=== PATIENT | female | born 1980 | race African-American/Black ===

== ENCOUNTER 2019-09-29 08:29 | Emergency (ER) | payer MEDICAID, OTHER ==
[~2019-09-29] VITALS: Ht 175.3 cm; Wt 68.0 kg
[2019-09-29] MEDS ORDERED: IMITREX50 MG ORAL ×2 (08:42→10:46)
[2019-09-29] MEDS ORDERED: NS 250 ML IV ONE (08:51)
[2019-09-29 08:53] VITALS: BP 144/98
[2019-09-29] MEDS ORDERED: Ketorolac 30mg Inj IV ONE (09:00)
[2019-09-29] MEDS ORDERED: DiphenhydrAMINE 50mg/ml Inj IVP ONE (09:00)
--- NOTE | 2019-09-29 09:01 | Emergency Room Report ---
History of Present Illness General Chief Complaint: Headache Source: Patient Present Illness HPI 38-year-old female history of migraine headaches presents with headache. She describes a frontal headache present for 2 days 10 out of 10 nonradiating. Some nausea but no vomiting. No fevers. No trauma. She has a history of migraines, tried Imitrex but is currently out of her medication. She denies any other medical history at this time. She has not taken any medications over the past 2 days. 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 OFFICER: No Patient History Last Menstrual Period: 09/25/19 Reviewed Nursing Documentation: PMH: Agreed; PSxH: Agreed Nursing Documentation-PMH Past Medical History: No History, Except For Review of Systems All Other Systems: negative except mentioned in HPI Physical Exam Vital Signs Date Time Temp Pulse Resp B/P (MAP) Pulse Ox O2 Delivery O2 Flow Rate FiO2 09/29/19 08:38 98.1 65 14 144/98 (113) 99 Room Air Sp02 EP Interpretation: reviewed, normal General Appearance: well appearing, no apparent distress Head: normocephalic, atraumatic Eyes: bilateral eye PERRL, bilateral eye EOMI ENT: hearing grossly normal, moist mucus membranes Neck: full range of motion, supple Respiratory: lungs clear, normal breath sounds, no rhonchi, no respiratory distress, no retraction, no wheezing Cardiovascular #1: normal peripheral pulses, regular rate, rhythm, no murmur Gastrointestinal: non tender, soft, non-distended, no guarding Neurologic: alert, motor strength/tone normal, 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 CT scan brain showed no acute abnormalities. Patient felt improved after migraine cocktail. Will provide refill of her Imitrex. Recommended follow-up with PMD. Also recommended discussion for referral to neurology. Agreeable with the plan. Stable for discharge. On reevaluation: Patient improved Plan-discharge home with refill of Imitrex and follow-up PMD. CT/MRI/US Diagnostic Results CT/MRI/US Diagnostic Results : Imaging Test Ordered: CT Brain Impression FINDINGS: There is normal symmetry and normal kay-white differentiation. There is no acute large territory cortical infarct, hemorrhage, mass effect or shift. Ventricles and cisterns as well as brainstem and posterior fossa appear unremarkable. The sellar region is normal. Sinuses, mastoid air cells and bony calvarium appear intact. IMPRESSION: NO ACUTE INTRACRANIAL ABNORMALITY. Last Vital Signs Date Time Temp Pulse Resp B/P (MAP) Pulse Ox O2 Delivery O2 Flow Rate FiO2 09/29/19 08:53 98.1 84 14 144/98 99 Room Air Status: improved Disposition: HOME, SELF-CARE Condition: Improved Scripts Sumatriptan Succinate* (IMITREX*) 50 Mg Tablet 50 MG ORAL DAILY PRN MIGRAINE PRN for Migraine Q2 up to 2 doses, #20 TAB Prov: Darrick Lauren M.D. 09/29/19 Darrick Lauren M.D. Sep 29, 2019 09:01
--- NOTE | 2019-09-29 09:19 | Diagnostic Imaging Report ---
EXAM: CT CT Head no Contrast INDICATION: Severe migraine headaches x2 days. TECHNIQUE: Axial images of the brain were obtained with subsequent sagittal and coronal reformats. All CT scans at this facility are performed using dose modulation techniques as appropriate to a performed exam including the following: automated exposure control with adjustment of the mA and/or kV according to patient size. COMPARISON STUDY: None. RADIATION DOSE: CTDIvol: 53.4 mGy DLP: 1045.5 mGy-cm Dose information generated by the CT scanner is available in PACS. FINDINGS: There is normal symmetry and normal kay-white differentiation. There is no acute large territory cortical infarct, hemorrhage, mass effect or shift. Ventricles and cisterns as well as brainstem and posterior fossa appear unremarkable. The sellar region is normal. Sinuses, mastoid air cells and bony calvarium appear intact. IMPRESSION: NO ACUTE INTRACRANIAL ABNORMALITY.
[2019-09-29 10:59] VITALS: BP 124/86
== END 2019-09-29 11:01 | disposition home or self-care (01) ==
LOC: EMR 08:45
DX: R51 Headache (principal); Z88.0 Allergy status to penicillin; R11.0 Nausea
CPT/HCPCS: 70450; 81025; 96374; 96375; J0780; J1200; J1885; J7050; Z7502; 99284

== ENCOUNTER 2020-01-17 00:01 | Emergency (ER) | payer MEDICAID ==
[~2020-01-17] VITALS: Ht 175.3 cm; Wt 74.4 kg
[~2020-01-17 00:01] MED LIST: IMITREX50 MG ORAL
--- NOTE | 2020-01-17 00:06 | Emergency Room Report ---
History of Present Illness General Chief Complaint: To Be Triaged Source: Patient Present Illness HPI 39-year-old female here with reviewed abdominal pain x2 days. Associated with dysuria and feels similar to "previous bladder infection". Patient is . Last sexual intercourse was unprotected with her . She has history of chlamydia when she was 21 years old which is completely treated. All sexual partners are treated. Last Pap smear was normal. Patient denies any concern for sexually transmitted infection at this time. Denies vaginal discharge. The patient's symptoms were gradual onset, severity was moderate, duration since 2 days. Quality: Burning Past medical history: None Past surgical history: x3 Smoking: Denies Alcohol use: Denies Drug use: Denies Review of systems: CONST: No fevers or chills, No night sweats PULMONARY: No productive cough, No shortness of breath CARDIAC: No chest pain, No palpitations GI: No vomiting, No diarrhea , No melena_or_BRBPR : No dysuria, No hematuria, No discharge NEURO: No new_focal_weakness_or_numbness, No confusion, No vision changes 14 point Review of Systems is otherwise negative except per HPI Physical Exam: GENERAL: Awake_alert_ nontoxic, no acute distress Spo2 98% on RA -normal EYES: Extraocular muscles are intact. Conjunctivae clear. Lids without swelling ENT: External nose and ear normal_in_appearance. Oropharynx clear. Head_at raumatic, Moist_oral_mucosa NECK: No JVD. No meningismus. No thyromegaly. Supple. Trachea midline RESP: Normal respiratory effort. Symmetric rise. No stridor. Clear_to_auscultation_No_rales_No_wheezes CARDIAC: Regular rate and regular rhytm. No_significant pedal edema. ABDOMEN: Soft.Mild suprapubic TTP without rebound. Nontender_No_rebound_or_guarding. Neg woods sign MSK: Normal muscle tone, without rigidity. Extremities without asymmetric deformity or swelling. SKIN: Warm and dry. No visible cyanosis or pallor NEUROLOGIC: Alert, oriented x3. Motor_and_sensation_grossly_intact. No truncal ataxia. Gait_normal Psych: Normal mood and affect, normal judgment and insight - COORDINATION OF CARE Case was discussed with: Patient Any labs and imaging that were ordered were interpreted as part of the medical decision making: Medical Decision Making/Plan: Differential diagnosis includes cholecystitis, choledocholithiasis, hepatitis, small bowel obstruction, volvulus, AAA, pancreatitis, atypical appendicitis, gastroparesis, gastritis, peptic ulcer disease, among others. Patient is well appearing with stable vital signs. Abdominal exam is non peritoneal with no guarding or rebound. No fever or CVA tenderness to palpation. Urinalysis shows questional cystitis. No hematuria to suggest pyelonephritis. Will treat as patient is symptomatic Patient declines concern for STI. I offered empiric prophylaxis against gonorrhea in clinic, however she declines Will DC with bactrim and pyridium The patient denies any bloody stool and has no pain out of proportion to exam, and no significant risk factors for mesenteric ischemia such as atrial fibrillation or severe PAD/PVD (peripheral arterial / vascular disease), thus definitive workup to rule out mesenteric ischemia was not pursued. The patients labs and serial abdominal exams were reassuring, without any peritoneal signs. Over the course of their emergency department stay, serial abdominal exams were performed. The patients symptoms significantly improved, exam upon discharge revealed a benign abdomen, and tolerating oral fluids. The patient appears stable for discharge to follow up with their primary medical doctor for repeat abdominal exam in 1-2 days, and understand to return to the ED immediately if symptoms change or worsen. Allergies: Coded Allergies: PENICILLINS (Verified Allergy, Unknown, 09/29/19) Rash COVID-19 Screening Contact w/high risk pt: No Recent Travel to affected area: No Experienced COVID-19 symptoms?: No Physical Exam Sp02 EP Interpretation: reviewed, normal Medical Decision Making Diagnostic Impression: Primary Impression: Abdominal pain Additional Impression: UTI (urinary tract infection) Disposition: HOME, SELF-CARE Admit Decision Time: 00:00 Condition: Stable Scripts Phenazopyridine Hcl* (PYRIDIUM*) 100 Mg Tablet 100 MG ORAL THREE TIMES A DAY for 2 Days, #4 TAB Prov: Laura Cheung D.O. 01/17/20 Trimethoprim/Sulfamethoxazole 160/800* (BACTRIM DS TABLET*) 1 Each Tablet 1 TAB ORAL Q12H for 7 Days, #14 TAB 0 Refills Prov: Laura Cheung D.O. 01/17/20 Additional Instructions: Instructions for patient/inpatient services rn: Follow up with your physician in 1-2 days. Follow-up with your doctor sooner if your condition requires a more timely clinical reevaluation. Return to the emergency department immediately if you feel that your condition is worsening or if you have any new or concerning symptoms. Review your discharge instructions and take any prescriptions given as instructed. [facility]: [facility] [address] [place] [address] [place] [address] [facility] [address] [facility] [address] [address] [facility] [address] [place] [address] [facility] [address] [place] [address] [facility] [place] [place] [id number] [place] [address] [place] [address] [facility] [address] [place] [address] [place] [address] [facility] [address] [place] [address] [facility] PROVIDES FREE OR LOW-COST HEALTH SERVICES TO PEOPLE WHO CAN SHOW PROOF THAT THEY LIVE IN [facility]. TO FIND MORE CLINICS PARTNERED WITH THE [facility] TO PROVIDE SERVICE, PLEASE CALL . [facility] facet Laura Cheung D.O. Jan 17, 2020 00:06
[2020-01-17 00:14] VITALS: BP 116/81
--- NOTE | 2020-01-17 00:14 | NUR ---
ED Nurse Note: pt ambulated into ed from home CO s/p UTI with lower abdominal pain 8/10 and burning during urination and hematuria x 3 days. pt aao x 4, ambulates with steady gait, VSS no ss of distress noted. Awaiting further orders. ERMD at bedside
--- NOTE | 2020-01-17 00:15 | NUR ---
ED Nurse Note: UA sent to lab
--- NOTE | 2020-01-17 00:18 | NUR ---
ED Nurse Note: ERMD at bedside
[2020-01-17] MEDS ORDERED: PHENAZOPYRIDIN100 MG ORAL (00:26)
[2020-01-17] MEDS ORDERED: BACTRIM DS TAB1 EAC1 ORAL (00:26)
[2020-01-17 00:36] LABS: APPEARANCE,URINE CLEAR; BILIRUBIN, URINE NEGATIVE (NEGATIVE); GLUCOSE, URINE (UA) NEGATIVE (NEGATIVE); KETONES,URINE NEGATIVE (NEGATIVE); LEUKOCYTE ESTERASE ,URINE 1+ (NEGATIVE); NITRITE,URINE NEGATIVE (NEGATIVE); PH,URINE 7 (4.5-8.0); PROTEIN,URINE NEGATIVE (NEGATIVE); UROBILINOGEN,URINE 8 MG/DL (0.0-1.0)
[2020-01-17 00:41] LABS: COLOR,URINE YELLOW
--- NOTE | 2020-01-17 00:55 | NUR ---
ED Nurse Note: ERMD at bedside for pt update
[2020-01-17] MEDS ORDERED: Phenazopyridine 200mg tab ORAL ONE (01:30)
[2020-01-17] MEDS ORDERED: Fluconazole 150mg tab ORAL ONE (01:30)
[2020-01-17] MEDS ORDERED: Naproxen 500mg tab ORAL ONE (01:30)
--- NOTE | 2020-01-17 01:30 | NUR ---
ED Nurse Note: all medications administered, pt tolerated well no ss of distress noted. will continue to monitor.
[2020-01-17 01:35] VITALS: BP 119/76
--- NOTE | 2020-01-17 01:35 | NUR ---
ER DISCHARGE NOTE: Patient is cleared to be discharged home per ERMD, pt is aox4, 99% on room air, with stable vital signs. pt was given dc and prescription instructions, pt was able to verbalize understanding, pt id band removed. pt is able to ambulate with steady gait. pt took all belongings.
== END 2020-01-17 01:35 | disposition home or self-care (01) ==
LOC: EMR 00:15
DX: R10.9 Unspecified abdominal pain (principal); N39.0 Urinary tract infection, site not specified; Z88.0 Allergy status to penicillin
CPT/HCPCS: 81001; 81025; Z7502; 99283

== ENCOUNTER 2020-03-02 10:25 | Emergency (ER) | payer MEDICAID ==
[~2020-03-02] VITALS: Ht 175.3 cm; Wt 72.6 kg
[~2020-03-02 10:25] MED LIST changes: +BACTRIM DS TAB1 EAC1 ORAL; +PHENAZOPYRIDIN100 MG ORAL
[2020-03-02 10:45] VITALS: BP 126/74
[2020-03-02] MEDS ORDERED: Acetaminophen 500mg (ES) tab ORAL ONE ×2 (10:45→10:50)
[2020-03-02] MEDS ORDERED: Metoclopramide 10mg/2ml Inj IM ONE (10:45)
[2020-03-02] MEDS ORDERED: Metoclopramide 10mg/10ml Liq ORAL ONE ×2 (11:00)
--- NOTE | 2020-03-02 11:17 | Emergency Room Report ---
History of Present Illness General Chief Complaint: General Complaint Source: Patient Present Illness HPI 39-year-old female, presents with some vaginal spotting and a migraine headache, she states that headache occurred 4 days ago not sudden onset similar to previous headaches, unilateral, pulsating severity is mild, gradual onset not sudden not worse in recumbent position no fevers no chills, no known aggravating relieving factors patient presents for evaluation of her migraine headache and she also wanted to make sure her spotting was normal she did utilize the morning after pill recently Allergies: Coded Allergies: PENICILLINS (Verified Allergy, Unknown, 09/29/19) Rash COVID-19 Screening Contact w/high risk pt: No Recent Travel to affected area: No Experienced COVID-19 symptoms?: No COVID-19 Testing performed 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 Patient History Past Medical History: see triage record Last Menstrual Period: irreg Now: No Reviewed Nursing Documentation: PMH: Agreed; PSxH: Agreed Nursing Documentation-PMH Past Medical History: No History, Except For Review of Systems All Other Systems: negative except mentioned in HPI Physical Exam Vital Signs Date Time Temp Pulse Resp B/P (MAP) Pulse Ox O2 Delivery O2 Flow Rate FiO2 03/02/20 10:29 98.6 96 16 120/78 (92) 99 Room Air Sp02 EP Interpretation: reviewed, normal General Appearance: well appearing, no apparent distress, alert Head: normocephalic, atraumatic Eyes: bilateral eye PERRL, bilateral eye EOMI ENT: uvula midline, moist mucus membranes Neck: supple, thyroid normal, supple/symm/no masses Respiratory: lungs clear, no respiratory distress, no retraction, no accessory muscle use Cardiovascular #1: normal peripheral pulses, regular rate, rhythm, no edema, no gallop, no murmur Gastrointestinal: non tender, soft, no guarding, no rebound Genitourinary: adnexa normal, cervix normal, ext genitalia/vag normal, other - Seismic Survey Assistant Katelyn Gamez RN, no CMT Musculoskeletal: normal inspection Neurologic: alert, motor strength/tone normal, 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 as tested, oriented x3, cerebellar normal - Finger-nose testing intact, motor weakness, speech normal, normal gait Psychiatric: mood/affect normal Skin: no rash, warm/dry Medical Decision Making Diagnostic Impression: Primary Impression: Bacterial vaginosis Additional Impression: Headache Qualified Codes: R51.9 - Headache, unspecified ER Course 39-year-old female presents with abdominal cramps, recent spotting, most likely due to recent use of morning-after pill vaginal exam unremarkable, wet mount sent, wet mount shows clue cells and WBCs concerning for bacterial vaginosis, will treat patient with metronidazole disposition home with return precautions, follow-up with PCP Based on the patient's history and physical there is very low clinical suspicion for significant intracranial pathology. There are no red flags of WILLS, not sudden in onset, not maximal in onset, no acute neurological findings, no fever with head stiffness. History of headaches yes Low suspicion for subarachnoid hemorrhage, encephalitis, meningitis. Laboratory Tests Test 03/02/20 10:34 Urine HCG, Qualitative Negative (NEGATIVE) Chlamydia trachomatis RNA Pending Neisseria gonorrhoeae RNA Pending Last Vital Signs Date Time Temp Pulse Resp B/P (MAP) Pulse Ox O2 Delivery O2 Flow Rate FiO2 03/02/20 10:29 98.6 96 16 120/78 (92) 99 Room Air Disposition: HOME, SELF-CARE Condition: Stable Scripts Metronidazole* (FLAGYL*) 500 Mg Tablet 500 MG ORAL BID for 7 Days, #14 TAB Prov: Neftali Reeder MD 03/02/20 Referrals: PREFERRED IPA,REFERRING (PCP) [facility] Patient Instructions: Bacterial Vaginosis, [id number], General Headache Without Cause, [id number] Additional Instructions: The patient was provided with discharge instructions, notified to follow-up with a primary care doctor and or specialist in the next 24-48 hours, and to return to the ED if they have worsening of their symptoms. Please note that this report is being documented using [employer] technology. This can lead to erroneous entry secondary to incorrect interpretation by the dictating instrument. Neftali Reeder MD Mar 02, 2020 11:17
[2020-03-02] MEDS ORDERED: METRONIDAZOLE500 MG ORAL (12:19)
[2020-03-02 12:30] VITALS: BP 121/83
== END 2020-03-02 12:30 | disposition home or self-care (01) ==
LOC: EMR 10:45
DX: R51.9 Headache, unspecified (principal); N76.0 Acute vaginitis; Z88.0 Allergy status to penicillin
CPT/HCPCS: 81025; 87210; 87491; 87590; J8540; Z7502; 99283

== ENCOUNTER 2020-04-21 10:38 | Emergency (ER) | payer MEDICAID ==
[~2020-04-21] VITALS: Ht 175.3 cm; Wt 72.6 kg
[~2020-04-21 10:38] MED LIST changes: +METRONIDAZOLE500 MG ORAL
[2020-04-21 11:13] VITALS: BP 124/68
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
[2020-04-21] MEDS ORDERED: Tetanus/Diptheria/Pertussis IM ONE (11:15)
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
[2020-04-21 11:25] VITALS: BP 122/65
--- NOTE | 2020-04-21 11:25 | NUR ---
ER DISCHARGE NOTE: Patient is cleared to be discharged per ERMD, pt is aox4, on room air, with stable vital signs. pt was given dc instructions, pt was able to verbalize understanding, pt id band removed without complications. pt is able to ambulate with steady gait. pt took all belongings.
== END 2020-04-21 11:25 | disposition home or self-care (01) ==
LOC: EMR 11:04
DX: S61.215A Laceration without foreign body of left ring finger without damage to nail, initial encounter (principal); X99.8XXA Assault by other sharp object, initial encounter; Y93.01 Activity, walking, marching and hiking; Y92.9 Unspecified place or not applicable; Z88.0 Allergy status to penicillin
CPT/HCPCS: 12001; 90471; 90715; Z7502; 99282

== ENCOUNTER 2020-05-23 12:59 | Emergency (ER) | payer MEDICAID ==
[~2020-05-23] VITALS: Ht 175.3 cm; Wt 74.8 kg
[2020-05-23 13:18] VITALS: BP 136/93
--- NOTE | 2020-05-23 13:28 | NUR ---
ED Nurse Note: patient from home and walked in due to migraine since yesterday accompanied by nausea. Pt is AAO x4 and ambulatory.
--- NOTE | 2020-05-23 14:01 | Emergency Room Report ---
History of Present Illness General Chief Complaint: Headache Source: Patient Present Illness HPI 39 YO female presents to the ED c/o 12/06 in severity migraine x 2 days. Pt. reports hx of migraines and is out of her sumatriptan. Pt. reports she is supposed to follow up with a Neurologist but has not done so. She denies fevers or chills. She denies neck pain/stiffness or photophobia. She reports nausea but denies vomiting. She reports some urinary frequency. She denies . She denies abdominal pain or tenderness. She denies recent head trauma. Patient reports her symptoms are similar in character to those she has experienced in the past. She denies visual or auditory changes. She reports she has attempted to rest in a dark room which has not relieved her symptoms. She is requesting that she not receive Benadryl which is usually given to her in the ED. 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 Patient History Past Medical History: see triage record Past Surgical History: none Pertinent Family History: none Now: No Reviewed Nursing Documentation: PMH: Agreed; PSxH: Agreed Nursing Documentation-PMH Past Medical History: No History, Except For Review of Systems All Other Systems: negative except mentioned in HPI Physical Exam Vital Signs Date Time Temp Pulse Resp B/P (MAP) Pulse Ox O2 Delivery O2 Flow Rate FiO2 05/23/20 13:18 97.9 74 15 136/93 (107) 97 Room Air Sp02 EP Interpretation: reviewed, normal General Appearance: no apparent distress, alert, GCS 15, non-toxic Head: normocephalic, atraumatic Eyes: bilateral eye normal inspection, bilateral eye PERRL, bilateral eye EOMI, bilateral eye other - no Photophobia ENT: hearing grossly normal, normal voice Neck: full range of motion Respiratory: lungs clear, normal breath sounds, speaking full sentences Cardiovascular #1: regular rate, rhythm Gastrointestinal: normal bowel sounds, non tender, soft Genitourinary: normal inspection, no CVA tenderness Musculoskeletal: normal range of motion, gait/station normal, non-tender Neurologic: alert, motor strength/tone normal, oriented x3, sensory intact, responsive, speech normal Psychiatric: judgement/insight normal Skin: no rash, normal color Medical Decision Making PA Attestation Dr. Jensen Is my supervising Physician whom patient management has been discussed with. Diagnostic Impression: Primary Impression: Urinary tract infection Qualified Codes: N30.01 - Acute cystitis with hematuria Additional Impression: Headache Qualified Codes: R51.9 - Headache, unspecified ER Course 39 YO female presents to the ED c/o 12/06 in severity migraine x 2 days. Pt. reports hx of migraines and is out of her sumatriptan. Pt. reports she is supposed to follow up with a Neurologist but has not done so. She denies fevers or chills. She denies neck pain/stiffness or photophobia. She reports nausea but denies vomiting. She reports some urinary frequency. She denies . She denies abdominal pain or tenderness. She denies recent head trauma. Patient reports her symptoms are similar in character to those she has experienced in the past. She denies visual or auditory changes. She reports she has attempted to rest in a dark room which has not relieved her symptoms. She is requesting that she not receive Benadryl which is usually given to her in the ED. Ddx considered but are not limited to migraine, SAH, Pseudomotor Cerebri,, Mass lesion, Cluster WILLS, Tension WILLS, Post lumbar puncture WILLS. Vital signs: are WNL, pt. is afebrile H&PE are most consistent with migraine headache ORDERS: - UA: POSITIVE FOR UTI -Urine Hcg: Negative ED INTERVENTIONS: - Compazine IM -IM Toradol ---IM -Fioricet DISCHARGE: At this time pt. is stable for d/c to home. Will provide printed patient care instructions, and any necessary prescriptions. Care plan and follow up instructions have been discussed with the patient prior to discharge. Labs Test 05/23/20 13:45 Urine Color Pale yellow Urine Appearance Slightly cloudy Urine pH 7 (4.5-8.0) Urine Specific [place] 1.010 (1.005-1.035) Urine Protein Negative (NEGATIVE) Urine Glucose (UA) Negative (NEGATIVE) Urine Ketones Negative (NEGATIVE) Urine Blood 1+ (NEGATIVE) Urine Nitrite Negative (NEGATIVE) Urine Bilirubin Negative (NEGATIVE) Urine Urobilinogen Normal MG/DL (0.0-1.0) Urine Leukocyte Esterase 1+ (NEGATIVE) Urine RBC 2-4 /HPF (0 - 2) Urine WBC 10-15 /HPF (0 - 2) Urine Squamous Epithelial Cells Many /LPF (NONE/OCC) Urine Bacteria Moderate /HPF (NONE) Urine HCG, Qualitative Negative (NEGATIVE) Last Vital Signs Date Time Temp Pulse Resp B/P (MAP) Pulse Ox O2 Delivery O2 Flow Rate FiO2 05/23/20 13:18 97.9 74 15 136/93 (107) 97 Room Air Status: improved Disposition: HOME, SELF-CARE Condition: Stable Scripts Cephalexin* (KEFLEX*) 500 Mg Capsule 500 MG ORAL EVERY 12 HOURS for 7 Days, #14 CAP 0 Refills Prov: Emiliana Weber 05/23/20 Sumatriptan Succinate (SUMATRIPTAN SUCCINATE) 50 Mg Tablet 50 MG PO DAILY, #20 TAB Prov: Emiliana Weber 05/23/20 Patient Instructions: Migraine Headache, Urinary Tract Infection, [id number] Additional Instructions: Take medications as directed. Follow up with a Primary Care Provider in 3-5 days For a referral to have NEUROLOGIST Evaluation, even if your symptoms have resolved. Return sooner to ED if new symptoms occur, or current symptoms become worse. - Please note that this Emergency Department Report was dictated using Course Heroagricultural engineering technologist technology software, occasionally this can lead to erroneous entry secondary to interpretation by the dictation equipment. Emiliana Weber May 23, 2020 14:01
[2020-05-23 14:03] LABS: BILIRUBIN, URINE NEGATIVE (NEGATIVE); COLOR,URINE PALE YELLOW; GLUCOSE, URINE (UA) NEGATIVE (NEGATIVE); KETONES,URINE NEGATIVE (NEGATIVE); LEUKOCYTE ESTERASE ,URINE 1+ (NEGATIVE); NITRITE,URINE NEGATIVE (NEGATIVE); PH,URINE 7 (4.5-8.0); PROTEIN,URINE NEGATIVE (NEGATIVE); UROBILINOGEN,URINE NORMAL MG/DL (0.0-1.0)
[2020-05-23 14:06] LABS: APPEARANCE,URINE SLIGHTLY CLOUDY
[2020-05-23] MEDS ORDERED: Ketorolac 30mg Inj IM ONE (14:30)
[2020-05-23] MEDS ORDERED: SUMATRIPTAN SUC50 MG PO (14:54)
[2020-05-23] MEDS ORDERED: CEPHALEXIN500 MG ORAL (14:54)
[2020-05-23 16:32] VITALS: BP 136/93
--- NOTE | 2020-05-23 16:34 | NUR ---
discharged home with instruction and rx follow up with pmd
== END 2020-05-23 15:00 | disposition home or self-care (01) ==
LOC: EMR 14:01
DX: R51.9 Headache, unspecified (principal); N30.01 Acute cystitis with hematuria; Z88.0 Allergy status to penicillin
CPT/HCPCS: 81003; 81025; 87086; 96372; J0780; Z7502; 99283

== ENCOUNTER 2020-06-24 14:11 | Emergency (ER) | payer MEDICAID ==
[~2020-06-24] VITALS: Ht 167.6 cm; Wt 79.4 kg
[~2020-06-24 14:11] MED LIST changes: +CEPHALEXIN500 MG ORAL; +SUMATRIPTAN SUC50 MG PO
[2020-06-24 14:54] VITALS: BP 120/80
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
[2020-06-24] MEDS ORDERED: HYDROcodone/Acetamin 5/325 tab ORAL ONE (15:15)
[2020-06-24] MEDS ORDERED: Ketorolac 30mg Inj IM ONE (15:15)
[2020-06-24 15:29] LABS: APPEARANCE,URINE SLIGHTLY CLOUDY; BILIRUBIN, URINE NEGATIVE (NEGATIVE); COLOR,URINE PALE YELLOW; GLUCOSE, URINE (UA) NEGATIVE (NEGATIVE); KETONES,URINE NEGATIVE (NEGATIVE); LEUKOCYTE ESTERASE ,URINE 3+ (NEGATIVE); NITRITE,URINE NEGATIVE (NEGATIVE); PH,URINE 6 (4.5-8.0); PROTEIN,URINE NEGATIVE (NEGATIVE); UROBILINOGEN,URINE NORMAL MG/DL (0.0-1.0)
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
[2020-06-24] MEDS ORDERED: ROBAXIN-500MG ORAL (16:26)
[2020-06-24] MEDS ORDERED: HYDROCODON-ACE1 EA15 ORAL (16:26)
[2020-06-24] MEDS ORDERED: IBUPROFEN600 M1 ORAL (16:26)
== END 2020-06-24 16:44 | disposition home or self-care (01) ==
LOC: EMR 15:02
DX: S13.4XXA Sprain of ligaments of cervical spine, initial encounter (principal); S00.83XA Contusion of other part of head, initial encounter; R10.32 Left lower quadrant pain; V43.52XA Car driver injured in collision with other type car in traffic accident, initial encounter; Y92.411 Interstate highway as the place of occurrence of the external cause; Z88.0 Allergy status to penicillin
CPT/HCPCS: 71046; 81001; 81025; 87086; 96372; J1885; Z7502; 99284